=== PATIENT | female | born 1980 | race Two or more races ===

== ENCOUNTER 2018-11-24 11:38 | Emergency (ER) | payer BC, MEDICAID ==
[~2018-11-24] VITALS: Ht 165.1 cm; Wt 68.0 kg
[2018-11-24 11:41] VITALS: BP 115/77
[2018-11-24] MEDS ORDERED: NKM (11:44)
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
[2018-11-24] MEDS ORDERED: NAPROXEN500 M2 ORAL (12:04)
[2018-11-24] MEDS ORDERED: ROBAXIN500 MG PO (12:04)
[2018-11-24 12:09] VITALS: BP 118/77
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
--- NOTE | 2018-11-24 12:10 | NUR ---
ER DISCHARGE NOTE: Patient is cleared to be discharged per PA, pt is aox4, on room air, with stable vital signs. pt was given dc and prescription instructions, pt was able to verbalize understanding, pt id band removed. pt is able to ambulate with steady gait. pt took all belongings.
== END 2018-11-24 12:10 | disposition home or self-care (01) ==
LOC: EMR 12:05
DX: S16.1XXA Strain of muscle, fascia and tendon at neck level, initial encounter (principal); M25.512 Pain in left shoulder; M25.511 Pain in right shoulder; V43.52XA Car driver injured in collision with other type car in traffic accident, initial encounter; Y92.410 Unspecified street and highway as the place of occurrence of the external cause
CPT/HCPCS: 99282